=== PATIENT | female | born 1980 | race Hispanic/Latino ===

== ENCOUNTER → 2019-06-18 | Outpatient (CLI) | payer BC, OTHER | END | disposition home or self-care (01) | LOC: RAH 13:44 | PROVIDERS: ATTEND Obstetrics & Gynecology | DX: Z12.31 Encounter for screening mammogram for malignant neoplasm of breast (principal) | CPT/HCPCS: 77067 ==

== ENCOUNTER 2020-03-30 23:13 | Emergency (ER) | payer BC | END 2020-03-31 00:32 | disposition home or self-care (01) | LOC: EDH 23:13 | DX: M54.6 Pain in thoracic spine (principal) | CPT/HCPCS: 99281 ==